=== PATIENT | female | born 1945 | race Caucasian/White ===

== ENCOUNTER 2018-07-28 10:05 | Inpatient (IN) | payer MEDICARE, MEDICAID ==
[2018-07-28 10:21] VITALS: BMI 39.9
[2018-07-28] MEDS ORDERED: Albuterol-Ipratrop 3 mg / 0.5 (3 ml) UD INH STA ×2 (10:47→13:52)
--- NOTE | 2018-07-28 10:50 | ED PDOC ---
HPI: SOB/CHF/COPD Time Seen by Provider: 07/28/18 10:36 Chief Complaint (Nursing): Shortness Of Breath Chief Complaint (Provider): cough, SOB, weakness History Per: Patient, Family, Chief Contract Officer (family requested to interpret) History/Exam Limitations: no limitations Onset/Duration Of Symptoms: Days (4-5), Gradual Initiating Event: Upper Respiratory Illness Quality: Tightness Exacerbating Factor(s): Exertion, Coughing Current Respiratory Medications: See Home Med List Severity: Moderate Associated Symptoms: Fever, Productive Cough, Light-headedness Additional Complaint(s): 73yo female hx asthma and "heart problems" presents w family member stating having productive yellow cough, SOB and wheeze ongoing intermittently for 2-3 weeks, completed course of antibiotics for "flu" about 2weeks ago, but last few days worse with malaise, SOB. Past Medical History Reviewed: Historical Data, Nursing Documentation, Vital Signs Vital Signs: Last Vital Signs Temp 98.8 F 07/28/18 10:21 Pulse 85 07/28/18 10:21 Resp 17 07/28/18 10:21 BP 127/70 07/28/18 10:21 Pulse Ox 98 07/28/18 10:21 Primary Care Provider: Varun Akers - Medical History PMH: Anxiety, Arthritis, Asthma, CAD, Cardia Arrhythmia, CHF, HTN, Hypercholesterolemia, Osteoporosis, Sleep Apnea Denies: Alzheimer's Disease, Anemia, Bronchitis, COPD, Dementia, Emphysema, HIV, Hyperthyroidism, Hypothyroidism, Kidney Stones, Migraine, Mitral Valve Prolapse, Multiple Sclerosis, Parkinson's Disease, Peripheral Edema, Pneumonia, Pulmonary Embolism, Chronic Kidney Disease, Seizures, Sickle Cell Disease, TIA - Surgical History Surgical History: Denies: Pacemaker - Family History Family History: States: Unknown Family Hx - Living Arrangements Living Arrangements: With Family - Social History Current smoker - smoking cessation education provided: No - Home Medications Home Medications: Ambulatory Orders Medication Instructions Recorded Carvedilol 25 mg PO BID 10/22/13 Dabigatran [Pradaxa] 150 mg PO BID 10/22/13 Furosemide [Lasix] 20 mg PO BID 10/22/13 Omeprazole 20 mg PO DAILY 10/22/13 Potassium Chloride 10 meq PO DAILY 10/22/13 Zolpidem Tartrate [Ambien] 10 mg PO HS 10/22/13 Albuterol HFA [Ventolin HFA 90 2 puff INH Q6 07/28/18 mcg/actuation (8 g)] Aspirin [Ecotrin] 81 mg PO DAILY 07/28/18 Donepezil [Aricept] 10 mg PO HS 07/28/18 Fluticasone Nasal [Flonase] 1 puff ISAI Q12 07/28/18 Fluticasone/Salmeterol 500/50 1 puff INH BID 07/28/18 [Advair Diskus 500/50] Hydrocortisone 2.5% 1 appl TOP BID 07/28/18 Levocetirizine Dihydrochloride 5 mg PO DAILY 07/28/18 [24Hr Allergy Relief] Pramipexole [Mirapex] 0.5 mg PO HS 07/28/18 Tramadol HCl [Ultram] 50 mg PO PRN PRN 07/28/18 - Allergies Allergies/Adverse Reactions: Allergies Allergy/AdvReac Type Severity Reaction Status Date / Time morphine Allergy RASH Verified 07/29/18 01:34 Review of Systems Constitutional: Positive for: Fever, Chills, Weakness, Malaise ENT: Positive for: Throat Pain Cardiovascular: Positive for: Chest Pain, Edema, Light Headedness Respiratory: Positive for: Cough, Shortness of Breath, SOB with Exertion, Wheezing Gastrointestinal: Negative for: Abdominal Pain Musculoskeletal: Positive for: Back Pain. Negative for: Neck Pain Skin: Negative for: Rash, Lesions Neurological: Positive for: Weakness. Negative for: Seizures, Altered Mental Status Psych: Negative for: Suicidal ideation Physical Exam - Reviewed Nursing Documentation Reviewed: Yes Vital Signs Reviewed: Yes - Physical Exam Appears: Positive for: Non-toxic, No Acute Distress Head Exam: Positive for: ATRAUMATIC, NORMAL INSPECTION, NORMOCEPHALIC Skin: Positive for: Normal Color, Warm, DRY Eye Exam: Positive for: EOMI, Normal appearance, PERRL ENT: Positive for: Normal ENT Inspection Neck: Positive for: Normal, Painless ROM Cardiovascular/Chest: Positive for: Regular Rate, Rhythm Respiratory: Positive for: Decreased Breath Sounds, Wheezing, Other (mild tachypnea) Gastrointestinal/Abdominal: Positive for: Soft. Negative for: Tenderness, Guarding Back: Positive for: Normal Inspection Extremity: Positive for: Normal ROM. Negative for: Tenderness, Deformity Neurological/Psych: Positive for: Awake, Alert, Normal Tone, Symmetric/Intact Strength. Negative for: Motor/Sensory Deficits, Facial Droop - Laboratory Results Result Diagrams: 07/29/18 04:25 07/29/18 04:25 - ECG O2 Sat by Pulse Oximetry: 98 Medical Decision Making Medical Decision Making: workup for mild resp failure initiated w recent treatment for "flu" with antibiotics and prednisone as outpatient PMD Dr Akers Cardio: Basilio labs reviewed mild elev BNP trop neg WBC normal ABG reveals mild to moderate hypoxia pt w persistent dyspnea despite therapeutics, has failed outpt therapy, discussed w PMD/ pulm Dr Akers who accepted for admission for resp stabilization and workup. Disposition - Clinical Impression Clinical Impression: Respiratory distress, COPD exacerbation - Patient ED Disposition Is Patient to be Admitted: Yes Discussed With : Varun Akers Counseled Patient/Family Regarding: Studies Performed - Disposition Disposition Time: 13:01 Condition: FAIR
[2018-07-28] MEDS ORDERED: Albuterol-Ipratrop 3 mg / 0.5 (3 ml) UD ONE ×2 (11:00→14:41)
[2018-07-28 11:32] LABS: BASO # 0.1 K/uL (0.0-0.2); BASO % 0.6 % (0.0-2.0); EOS # 0.2 K/uL (0.0-0.7); EOS % 1.9 % (0.0-4.0); HEMOGLOBIN 10.8 g/dL (12.0-16.0); LYMPH # 1.5 K/uL (1.0-4.3); LYMPH % 17.1 % (20.0-40.0); MEAN CELL VOLUME 83.2 fl (81.0-99.0); MEAN CORPUSCULAR HEMOGLOBIN 26.8 pg (27.0-31.0); MEAN CORPUSCULAR HGB CONC 32.2 g/dL (33.0-37.0); MEAN PLATELET VOLUME 9.5 fl (7.2-11.7); MONO # 0.7 K/uL (0.0-0.8); MONO % 8.5 % (0.0-10.0); NEUT # 6.2 K/uL (1.8-7.0); NEUT % 71.9 % (50.0-75.0); RBC 4.04 Mil/uL (3.80-5.20); RED CELL DISTRIBUTION WIDTH 17.5 % (11.5-14.5); WHITE BLOOD COUNT 8.6 K/uL (4.8-10.8)
[2018-07-28 11:46] LABS: BLOOD UREA NITROGEN 16 mg/dl (7-17); CALCIUM 8.5 mg/dL (8.4-10.2); GFR NON-AFRICAN AMERICAN > 60
[2018-07-28 11:51] LABS: ALBUMIN 3.7 g/dL (3.5-5.0); ALT/SGPT 18 U/L (9-52); AST/SGOT 43 U/L (14-36)
[2018-07-28 11:57] LABS: B-TYPE NATRIURETIC PEPTIDE 1370 pg/ml (0-900)
--- NOTE | 2018-07-28 13:36 | RAD ---
Date of service: 07/28/2018 HISTORY: chest pain/ r/o infiltrate COMPARISON: 10/24/2013 TECHNIQUE: Chest PA and lateral views FINDINGS: LUNGS: There is vague rounded opacity projecting over the right upper lung zone and also the anterior right 2nd rib in right posterior 6th rib here. A small infiltrate here is 1 consideration. Underlying neoplastic change is another. Otherwise no dense consolidative infiltrate seen. Overall bronchovascular and interstitial lung markings appear prominent-in interstitial inflammatory reactive process is suspect. Concomitant pulmonary vascular congestion also is a consideration. The overall coursing the bronchovascular markings and peribronchial cuffing appear increased since the prior exam. PLEURA: No significant pleural effusion identified. No pneumothorax apparent. CARDIOVASCULAR: There is presence of aortic atherosclerotic calcification on x-ray. Cardiomegaly-similar concomitant pulmonary vascular congestion suspect as above. OSSEOUS STRUCTURES: Bilateral shoulder arthrosis. VISUALIZED UPPER ABDOMEN: Normal. OTHER FINDINGS: None. IMPRESSION: Indeterminate oval nodular opacity projecting over the right upper lung zone-inflammatory/infectious and/or neoplastic are some considerations. Consider noncontrast CT chest for optimal evaluation. Other findings as above. Comments: Study marked for PA review .
[2018-07-28 13:59] LABS: ABG ALLEN TEST YES; ARTERIAL BLOOD GAS HCO3 28.3 mmol/L (21-28); ARTERIAL BLOOD GAS O2 CAPACITY 14.9 mL/dL (16-24); ARTERIAL BLOOD GAS O2 CONTENT 14.1 ML/dL (15-23); ARTERIAL BLOOD GAS O2 SAT 94.9 % (95-98); ARTERIAL BLOOD GAS PCO2 38 mm/Hg (35-45); ARTERIAL BLOOD GAS PH 7.48 (7.35-7.45); ARTERIAL BLOOD GAS PO2 55 mm/Hg (80-100); ARTERIAL BLOOD GAS TCO2 29.5 mmol/L (22-28)
--- NOTE | 2018-07-28 17:31 | CARD ---
APPROVED REPORT Date of service: 07/28/2018 EKG Measurement Heart [id number] <Conclusion> Atrial fibrillation Left anterior fascicular block Abnormal ECG
[2018-07-28] MEDS: FLUTICASONE PROPION/SALMETEROL 232-14 INHALER INH SCH (22:24)
[2018-07-29] MEDS: Albuterol 0.083% Inhal Sol (2.5 mg/3 mL) UD INH SCH ×4 (01:08→19:35)
[2018-07-29 06:09] LABS: MEAN CORPUSCULAR HEMOGLOBIN 26.8 pg (27.0-31.0); MEAN CORPUSCULAR HGB CONC 32.3 g/dL (33.0-37.0); RBC 4.1 Mil/uL (3.80-5.20); WHITE BLOOD COUNT 8.8 K/uL (4.8-10.8)
[2018-07-29 06:31] LABS: BLOOD UREA NITROGEN 15 mg/dl (7-17); CALCIUM 8.8 mg/dL (8.4-10.2); GFR NON-AFRICAN AMERICAN > 60
[2018-07-29] MEDS: FLUTICASONE PROPION/SALMETEROL 232-14 INHALER INH SCH ×2 (09:03→16:39)
[2018-07-29] MEDS: Pantoprazole 40 mg EC Tab PO SCH (09:04)
[2018-07-29] MEDS: Potassium Chloride 10 mEq ER Tab PO SCH (09:11)
--- NOTE | 2018-07-29 11:51 | CARD ---
APPROVED REPORT Date of service: 07/29/2018 EXAM: Two-dimensional and M-mode echocardiogram with Doppler and color Doppler. Other Information Quality : AverageRhythm : Atrial Fibrillation Technically limited study due to Poor parasternal windows INDICATION Dyspnea Congestive Heart Failure 2D DIMENSIONS IVSd1.19 (0.7-1.1cm)LVDd4.23 (3.9-5.9cm) LVOT Diameter2.06 (1.8-2.4cm)PWd0.97 (0.7-1.1cm) IVSs1.47 (0.8-1.2cm)LVDs2.34 (2.5-4.0cm) FS (%) 44.7 %PWs1.23 (0.8-1.2cm) M-Mode DIMENSIONS Left Atrium (MM)4.20 (2.5-4.0cm)IVSd1.03 (0.7-1.1cm) Aortic Root3.57 (2.2-3.7cm)LVDd5.56 (4.0-5.6cm) Aortic Cusp Exc.2.08 (1.5-2.0cm)PWd1.26 (0.7-1.1cm) IVSs1.56 cmFS (%) 58 % LVDs2.32 (2.0-3.8cm)PWs1.65 cm Aortic Valve AoV Peak Kkwjpgpm251.8cm/sAoV VTI25.7cmAO Peak GR.8mmHg LVOT Peak Ktuhddot847.9cm/sLVOT VTI19.73cmAO Mean GR.4mmHg ANAIS (VMAX)1.86dl6XNW (VTI)1.20cm2 Mitral Valve E/A ratio0.0 TDI E/Lateral E'0.0E/Medial E'0.0 Tricuspid Valve TR Peak Mnjpmmyj026in/sRAP [id number] Peak Gr.19mmHg [id number] LEFT VENTRICLE The left ventricle is normal size. There is normal left ventricular wall thickness. The left ventricular systolic function is normal. The estimated ejection fraction is 55-60% No regional wall motion abnormalities noted.. The left ventricular diastolic function cannot be assessed due to underlying atrial fibrillation. No left ventricle thrombus noted on this study. There is no ventricular septal defect visualized. There is no left ventricular aneurysm. There is no mass noted in the left ventricle. RIGHT VENTRICLE The right ventricle is normal size. There is normal right ventricular wall thickness. The right ventricular systolic function is normal. ATRIA The left atrium is moderately dilated. The right atrium size is normal. The interatrial septum is intact with no evidence for an atrial septal defect. AORTIC VALVE The aortic valve is normal in structure. No aortic regurgitation is present. There is no aortic valvular stenosis. There is no aortic valvular vegetation. MITRAL VALVE The mitral valve is normal in structure. There is no evidence of mitral valve prolapse. There is no mitral valve stenosis. There is trace mitral valve regurgitation noted. TRICUSPID VALVE The tricuspid valve is normal in structure. There is mild tricuspid valve regurgitation noted. RVSP is calculated at 32 mm Hg. There is no tricuspid valve prolapse or vegetation. There is no tricuspid valve stenosis. PULMONIC VALVE The pulmonary valve is normal in structure. There is no pulmonic valvular regurgitation. There is no pulmonic valvular stenosis. GREAT VESSELS The aortic root is normal in size. The ascending aorta is normal in size. The pulmonary artery is normal. The IVC is dilated in size and collapses >50% with inspiration. PERICARDIAL EFFUSION There is no pericardial effusion. There is no pleural effusion. <Conclusion> The estimated ejection fraction is 55-60% The left ventricular diastolic function cannot be assessed due to underlying atrial fibrillation. The left atrium is moderately dilated. There is trace mitral valve regurgitation noted. There is mild tricuspid valve regurgitation noted. RVSP is calculated at 32 mm Hg. The IVC is dilated in size and collapses >50% with inspiration.
--- NOTE | 2018-07-29 12:48 | CP.PCM.CON ---
History of Present Illness - History of Present Illness History of Present Illness: 73 year old female admitted with acute respiratory insufficiency s/p days tx outpt URI. CXR findings suggestive of ? infiltrate ? increased vascular markings BNP is elevated. PMH : Chronic atrial fibrillation on Pradaxa. Pt improved with respiratory treatments. Past Patient History - Infectious Disease Hx of Infectious Diseases: None - Tetanus Immunizations Tetanus Immunization: Unknown - Past Medical History & Family History Past Medical History?: Yes - Past Social History Smoking Status: Former Smoker - CARDIAC Hx Cardiac Disorders: Yes Hx Cardia Arrhythmia: Yes Hx Congestive Heart Failure: Yes Hx Hypercholesterolemia: Yes Hx Hypertension: Yes - PULMONARY Hx Respiratory Disorders: Yes Hx Asthma: Yes Hx Sleep Apnea: Yes - NEUROLOGICAL Hx Alzheimer's Disease: No Hx Dementia: No Hx Migraine: No Hx Multiple Sclerosis: No Hx Parkinson's Disease: No Hx Seizures: No Hx Transient Ischemic Attacks (TIA): No - HEENT Hx HEENT Problems: No - RENAL Hx Chronic Kidney Disease: No - ENDOCRINE/METABOLIC Hx Hyperthyroidism: No Hx Hypothyroidism: No - HEMATOLOGICAL/ONCOLOGICAL Hx AIDS: No Hx Anemia: No Hx Hepatitis A: Yes Hx Human Immunodeficiency Virus (HIV): No Hx Sickle Cell Disease: No - INTEGUMENTARY Hx Dermatological Problems: No - MUSCULOSKELETAL/RHEUMATOLOGICAL Hx Arthritis: Yes Hx Falls: Yes Hx Osteoporosis: Yes - GASTROINTESTINAL Hx Gastrointestinal Disorders: Yes (GERD) Hx Gastroesophageal Reflux: Yes - GENITOURINARY/GYNECOLOGICAL Hx Genitourinary Disorders: No - PSYCHIATRIC Hx Psychophysiologic Disorder: Yes Hx Anxiety: Yes Hx Substance Use: No - SURGICAL HISTORY Hx Surgeries: Yes Hx Cataract Extraction: Yes (bilateral) Hx Gastric Bypass Surgery: Yes Hx Orthopedic Surgery: Yes (bilateral knee replacements, right wrist sx) Other/Comment: right breast cyst removal - ANESTHESIA Hx Anesthesia: Yes Hx Anesthesia Reactions: No Hx Malignant Hyperthermia: No Meds Allergies/Adverse Reactions: Allergies Allergy/AdvReac Type Severity Reaction Status Date / Time morphine Allergy RASH Verified 07/29/18 01:34 - Medications Medications: Current Medications Albuterol Sulfate (Albuterol 0.083% Inhal Taryn (2.5 Mg/3 Ml) Ud) 2.5 mg INH RQ6 SAURAB[facility] Last Admin: 07/29/18 07:59 Dose: 2.5 mg Aspirin (Ecotrin) 81 mg PO DAILY [facility]AB[facility] Last Admin: 07/29/18 09:05 Dose: 81 mg Carvedilol (Coreg) 25 mg PO BID ON LICENSE OF [facility] Last Admin: 07/29/18 09:05 Dose: 25 mg Dabigatran (Pradaxa) 150 mg PO BID ON LICENSE OF [facility]; Protocol Last Admin: 07/29/18 09:04 Dose: 150 mg Donepezil HCl (Aricept) 10 mg PO [facility] Last Admin: 07/28/18 22:26 Dose: 10 mg Fluticasone Propionate (Flonase) 1 spr ISIA Q12 ON LICENSE OF [facility] Last Admin: 07/29/18 09:03 Dose: 1 spr Furosemide (Lasix) 20 mg IVP DAILY ON LICENSE OF [facility] Last Admin: 07/29/18 09:03 Dose: 20 mg Hydrocortisone (Hydrocortisone 2.5%) 1 applic TOP BID ON LICENSE OF [facility] Last Admin: 07/29/18 09:03 Dose: 1 appful Loratadine (Claritin) 10 mg PO DAILY ON LICENSE OF [facility] Last Admin: 07/29/18 09:05 Dose: 10 mg Pantoprazole Sodium (Protonix Ec Tab) 40 mg PO DAILY ON LICENSE OF [facility] Last Admin: 07/29/18 09:04 Dose: 40 mg Potassium Chloride (Klor-Con 10) 10 meq PO DAILY ON LICENSE OF [facility] Last Admin: 07/29/18 09:11 Dose: 10 meq Pramipexole Dihydrochloride (Mirapex) 0.5 mg PO [facility] Last Admin: 07/28/18 22:26 Dose: 0.5 mg Tramadol HCl (Ultram) 50 mg PO Q8H PRN PRN Reason: Pain, severe (8-10) Zolpidem Tartrate (Ambien) 5 mg PO [facility] Last Admin: 07/28/18 22:30 Dose: 5 mg Physical Exam - Head Exam Head Exam: NORMAL INSPECTION - Neck Exam Neck exam: Positive for: Normal Inspection - Respiratory Exam Respiratory Exam: Wheezes - Cardiovascular Exam Cardiovascular Exam: Irregular Rhythm - GI/Abdominal Exam GI & Abdominal Exam: Normal Bowel Sounds - Extremities Exam Extremities exam: Positive for: normal inspection Results - Vital Signs Recent Vital Signs: Last Vital Signs Temp 98.1 F 07/29/18 12:15 Pulse 75 07/29/18 12:15 Resp 18 07/29/18 12:15 BP 126/72 07/29/18 12:15 Pulse Ox 98 07/29/18 12:15 - Labs Result Diagrams: 07/29/18 04:25 07/29/18 04:25 Labs: Laboratory Results - last 24 hr 07/28/18 07/29/18 07/29/18 13:41 04:25 04:25 WBC 8.8 RBC 4.10 Hgb 11.0 L Hct 34.0 MCV 83.0 MCH 26.8 L MCHC 32.3 L RDW 17.0 H Plt Count 239 pCO2 38 pO2 55 L HCO3 28.3 H ABG pH 7.48 H ABG Total CO2 29.5 H ABG O2 Saturation 94.9 L ABG O2 Content 14.1 L ABG Base Excess 4.5 H ABG Hemoglobin 11.0 L ABG Carboxyhemoglobin 2.1 H POC ABG HHb (Measured) 4.9 ABG Methemoglobin 2.1 ABG O2 Capacity 14.9 L Rayray Test Yes A-a O2 Difference 47.0 Hgb O2 Saturation 90.9 L FiO2 21.0 Sodium 139 Potassium 3.5 L Chloride 103 Carbon Dioxide 31 H Anion Gap 9 L BUN 15 Creatinine 0.6 L Est GFR ( Amer) > 60 Est GFR (Non-Af Amer) > 60 Random Glucose 155 H Calcium 8.8 Phosphorus 3.1 Magnesium 2.3 Assessment & Plan - Assessment and Plan (Free Text) Assessment: ECHOcardiogram reviewed normal LVEF, no signficant valvular abn Atrial Fibrillation Rate is controlled on Carvedilol Elevated BNP most likely due to age, diastolic dysfunction Continue aggressive pulmonary treatment CT scan to evaluate CXR findings pending
--- NOTE | 2018-07-29 15:58 | CT ---
Date of service: 07/29/2018 PROCEDURE: CT Chest without contrast HISTORY: Respiratory Failure COMPARISON: None available. TECHNIQUE: Contiguous axial images were obtained through the chest without intravenous contrast enhancement. Sagittal and coronal reconstructions were performed. Radiation dose: Total exam DLP = 615.15 mGy-cm. This CT exam was performed using one or more of the following dose reduction techniques: Automated exposure control, adjustment of the mA and/or kV according to patient size, and/or use of iterative reconstruction technique. FINDINGS: LUNGS: There are several elliptical shaped translucent opacities seen in the left upper lobe 1 in the left lung apex measuring approximately 13 mm right medial malleolar, another more anterior and inferiorly located measuring approximately 18 mm x 11 mm and another laterally located pleural-based measuring approximately 14 mm. Smaller smaller translucent opacity superior aspect left lower lobe measuring 6.4 mm. . Similar translucent opacity present in the right lung apex measuring approximately 15 mm x 12 mm with a more translucent faint opacity slightly more inferiorly and anteriorly located measuring 9 mm with a smaller 4.6 mm opaque density in the right middle lobe. These foci are of uncertain etiology though localized foci of inflammation-infection not excluded. Recommend follow-up CT scan at interval to assess resolution. More dense round/elliptical shaped opacities in the medial segment right middle lobe and left posterior lung base may represent discoid and around the type atelectasis or scarring. These foci are of uncertain etiology however follow-up MEDIASTINUM: Heart size is mildly enlarged. No significant pericardial effusion. Ascending thoracic aorta measures approximately 3.5 cm and descending thoracic aorta measures approximate 3.0 cm. Mild aortic atherosclerotic calcification. Pulmonary trunk measures approximately 3.1 cm. Trachea midline and patent with no large central endoluminal lesions. There is a tiny hiatal hernia. There are multiple small nonspecific mediastinal lymph nodes. Evaluation for hilar adenopathy limited due lack of circulating intravenous contrast material. PLEURA: Questionable tiny loculated effusion right medial lung base BONES: There are chronic appearing superior endplate compression deformities of the T8, T11 and to a lesser degree T12 segments. Mild multilevel degenerative spondylosis of the thoracic spine. UPPER ABDOMEN: Apparent postop changes of gastric sleeve procedure. Clinical correlation with surgical history. Small exophytic cyst posterior cortex upper pole left kidney. OTHER FINDINGS: None. IMPRESSION: There are multiple round and elliptical shaped relatively small translucent opacity scattered throughout the upper lobes bilaterally. Changes may be post inflammatory or infectious etiology. More dense opacities in the right middle lobe and right lung base likely represent chronic atelectasis or scarring. Questionable small loculated fluid collection medial aspect right lung base. Recommend follow-up CT scan at interval to assess resolution
--- NOTE | 2018-07-29 22:40 | CP.PCM.CON ---
History of Present Illness - History of Present Illness History of Present Illness: 73 y/o female with history of Obesity, HTN, B. Athma, A-Fib; presents with wheezing and PATTON. Neg fever, neg chills, mild sputum production. Finished a course of PO Abx. NKDA Never Smoker VS Stable WNL Head: Neg JOVON Neg JVD at 45 degree angle. Neg Hepatojugular reflex. Heart: Irregular Rhytm regular rate. Neg M Lungs: some Mild Exp Rhonchi through both lung booth. Neg crackles. Abdo S, NT, Pos BS Ext No c,c,e Neuro GNF Chest Xray, : ? opacification in lower lobes. ? Vascular congestion. Labs: See below. A/P Acute Resp Insuff 2/2 B. Asthma ? CHF. Chronic Medical Conditions as described. Cont Nebulized treatments ! 6 hours while awakd. Cardio consult appreciated. Cont AC for A-Fib and rate control PRN. Don't want to give IV steroids 2/2 to minimal wheezing and possible CHF. Awaiting CT report. Cont rest of Rx. Possible D/C tomorrow with a f/u in my office next wek. Past Patient History - Infectious Disease Hx of Infectious Diseases: None - Tetanus Immunizations Tetanus Immunization: Unknown - Past Medical History & Family History Past Medical History?: Yes - Past Social History Smoking Status: Former Smoker - CARDIAC Hx Cardiac Disorders: Yes Hx Cardia Arrhythmia: Yes Hx Congestive Heart Failure: Yes Hx Hypercholesterolemia: Yes Hx Hypertension: Yes - PULMONARY Hx Respiratory Disorders: Yes Hx Asthma: Yes Hx Sleep Apnea: Yes - NEUROLOGICAL Hx Alzheimer's Disease: No Hx Dementia: No Hx Migraine: No Hx Multiple Sclerosis: No Hx Parkinson's Disease: No Hx Seizures: No Hx Transient Ischemic Attacks (TIA): No - HEENT Hx HEENT Problems: No - RENAL Hx Chronic Kidney Disease: No - ENDOCRINE/METABOLIC Hx Hyperthyroidism: No Hx Hypothyroidism: No - HEMATOLOGICAL/ONCOLOGICAL Hx AIDS: No Hx Anemia: No Hx Hepatitis A: Yes Hx Human Immunodeficiency Virus (HIV): No Hx Sickle Cell Disease: No - INTEGUMENTARY Hx Dermatological Problems: No - MUSCULOSKELETAL/RHEUMATOLOGICAL Hx Arthritis: Yes Hx Falls: Yes Hx Osteoporosis: Yes - GASTROINTESTINAL Hx Gastrointestinal Disorders: Yes (GERD) Hx Gastroesophageal Reflux: Yes - GENITOURINARY/GYNECOLOGICAL Hx Genitourinary Disorders: No - PSYCHIATRIC Hx Psychophysiologic Disorder: Yes Hx Anxiety: Yes Hx Substance Use: No - SURGICAL HISTORY Hx Surgeries: Yes Hx Cataract Extraction: Yes (bilateral) Hx Gastric Bypass Surgery: Yes Hx Orthopedic Surgery: Yes (bilateral knee replacements, right wrist sx) Other/Comment: right breast cyst removal - ANESTHESIA Hx Anesthesia: Yes Hx Anesthesia Reactions: No Hx Malignant Hyperthermia: No Meds Allergies/Adverse Reactions: Allergies Allergy/AdvReac Type Severity Reaction Status Date / Time morphine Allergy RASH Verified 07/29/18 01:34 - Medications Medications: Current Medications Albuterol Sulfate (Albuterol 0.083% Inhal Taryn (2.5 Mg/3 Ml) Ud) 2.5 mg INH RQ6 [facility] Last Admin: 07/29/18 19:35 Dose: 2.5 mg Aspirin (Ecotrin) 81 mg PO DAILY [facility] Last Admin: 07/29/18 09:05 Dose: 81 mg Carvedilol (Coreg) 25 mg PO BID [facility] Last Admin: 07/29/18 16:40 Dose: 25 mg Dabigatran (Pradaxa) 150 mg PO BID [facility]; Protocol Last Admin: 07/29/18 16:40 Dose: 150 mg Donepezil HCl (Aricept) 10 mg PO HS [facility] Last Admin: 07/29/18 21:13 Dose: 10 mg Fluticasone Propionate (Flonase) 1 spr ISAI Q12 [facility] Last Admin: 07/29/18 21:13 Dose: 1 spr Furosemide (Lasix) 20 mg IVP DAILY [facility] Last Admin: 07/29/18 09:03 Dose: 20 mg Hydrocortisone (Hydrocortisone 2.5%) 1 applic TOP BID [facility] Last Admin: 07/29/18 16:40 Dose: 1 appful Loratadine (Claritin) 10 mg PO DAILY [facility] Last Admin: 07/29/18 09:05 Dose: 10 mg Pantoprazole Sodium (Protonix Ec Tab) 40 mg PO DAILY [facility] Last Admin: 07/29/18 09:04 Dose: 40 mg Potassium Chloride (Klor-Con 10) 10 meq PO DAILY [facility] Last Admin: 07/29/18 09:11 Dose: 10 meq Pramipexole Dihydrochloride (Mirapex) 0.5 mg PO HS [facility] Last Admin: 07/29/18 21:13 Dose: 0.5 mg Pregabalin (Lyrica) 200 mg PO DAILY@1999 [facility] Last Admin: 07/29/18 22:25 Dose: 200 mg Tramadol HCl (Ultram) 50 mg PO Q8H PRN PRN Reason: Pain, severe (8-10) Zolpidem Tartrate (Ambien) 5 mg PO HS [facility] Last Admin: 07/29/18 22:24 Dose: 5 mg Results - Vital Signs Recent Vital Signs: Last Vital Signs Temp 98.1 F 07/29/18 20:22 Pulse 82 07/29/18 20:22 Resp 20 07/29/18 20:22 BP 106/69 07/29/18 20:22 Pulse Ox 95 07/29/18 20:22 - Labs Result Diagrams: 07/29/18 04:25 07/29/18 04:25 Labs: Laboratory Results - last 24 hr 07/29/18 07/29/18 04:25 04:25 WBC 8.8 RBC 4.10 Hgb 11.0 L Hct 34.0 MCV 83.0 MCH 26.8 L MCHC 32.3 L RDW 17.0 H Plt Count 239 Sodium 139 Potassium 3.5 L Chloride 103 Carbon Dioxide 31 H Anion Gap 9 L BUN 15 Creatinine 0.6 L Est GFR ( Amer) > 60 Est GFR (Non-Af Amer) > 60 Random Glucose 155 H Calcium 8.8 Phosphorus 3.1 Magnesium 2.3
[2018-07-30] MEDS: Albuterol 0.083% Inhal Sol (2.5 mg/3 mL) UD INH SCH ×4 (01:00→20:00)
[2018-07-30 08:14] VITALS: RESP 20
[2018-07-30] MEDS: FLUTICASONE PROPION/SALMETEROL 232-14 INHALER INH SCH ×2 (09:12→16:47)
[2018-07-30] MEDS: Potassium Chloride 10 mEq ER Tab PO SCH (09:20)
[2018-07-30] MEDS: Pantoprazole 40 mg EC Tab PO SCH (09:21)
[2018-07-30] MEDS ORDERED: methylPREDNISolone 60 MG in Sodium Chloride 0.9% 50 ML IVPB SCH (09:30)
[2018-07-30] MEDS: Acetylcysteine 10% 4 ML IH SCH ×2 (13:42→20:00)
[2018-07-30 20:03] VITALS: BP 135/81; PULSE 116; TEMP 98.2; O2SAT 95
--- NOTE | 2018-08-04 08:45 | DS ---
HISTORY OF PRESENT ILLNESS: The patient is a 73-year-old female that was admitted for acute asthma exacerbation. She was placed on observation, but concerning that her symptoms were not improving, she was admitted. She was treated with IV steroids. Since there was a question of CHF on the x-ray, a CT was ordered and Cardiology consult was obtained. CT did not disclose any pulmonary edema. Cardiology saw her and evaluated and an echo was performed, showing no abnormalities and preserved systolic function. The patient responded to IV Solu-Medrol. Her usual medications were given for her chronic medical conditions which were hypertension and osteoarthritis. PHYSICAL EXAMINATION: VITAL SIGNS: The patient's vital signs upon discharge were stable. HEENT: Head, negative adenopathy. Positive PERRL. HEART: Regular rate and rhythm, normal S1 and S2. No murmurs were appreciated. LUNGS: Clear to auscultation and percussion. ABDOMEN: Soft and nontender. Positive bowel sounds. EXTREMITIES: No clubbing. No cyanosis. 1+ pitting edema of the lower extremities. ASSESSMENT AND PLAN: The patient was treated for acute asthma exacerbation with the aforementioned IV medications and the patient was discharged on Medrol Ryan with a followup to see me on Friday. Varun Akers MD
== END 2018-07-30 21:25 | disposition home or self-care (01) | DRG 202 ==
LOC: H.ER 10:05 → H.ERHOLD 13:41 → H.TEL 19:34 → OBSVTOIN 07-30 11:30
PROVIDERS: ADMIT Internal Medicine Pulmonary Disease; ATTEND Internal Medicine Pulmonary Disease
PROC: 3E0F73Z Introduction of Anti-inflammatory into Respiratory Tract, Via Natural or Artificial Opening (ICD-10-PCS; principal; 2018-07-30)
DX: J45.901 Unspecified asthma with (acute) exacerbation (principal); J44.1 Chronic obstructive pulmonary disease with (acute) exacerbation; I48.2 Chronic atrial fibrillation; I11.0 Hypertensive heart disease with heart failure; I25.10 Atherosclerotic heart disease of native coronary artery without angina pectoris; K21.9 Gastro-esophageal reflux disease without esophagitis; M81.0 Age-related osteoporosis without current pathological fracture; E78.00 Pure hypercholesterolemia, unspecified; G47.30 Sleep apnea, unspecified; I50.9 Heart failure, unspecified; F41.9 Anxiety disorder, unspecified; E66.9 Obesity, unspecified; Z68.39 Body mass index [BMI] 39.0-39.9, adult; M19.90 Unspecified osteoarthritis, unspecified site; Z96.653 Presence of artificial knee joint, bilateral; Z98.84 Bariatric surgery status; Z88.6 Allergy status to analgesic agent; Z79.02 Long term (current) use of antithrombotics/antiplatelets; Z87.891 Personal history of nicotine dependence; Z79.82 Long term (current) use of aspirin